=== PATIENT | female | born 1985 | race Caucasian/White ===

== ENCOUNTER 2021-03-07 17:11 | Emergency (ER) | payer OTHER ==
[~2021-03-07] VITALS: Ht 165.1 cm; Wt 59.1 kg
[2021-03-07] MEDS ORDERED: ONDANSETRON HCL 4 MG TABLET PO ONE (19:00)
[2021-03-07] MEDS ORDERED: ACETAMINOPHEN 500 MG TABLET PO ONE (19:00)
[2021-03-07 20:11] VITALS: BP 109/74
== END 2021-03-07 20:17 | disposition home or self-care (01) ==
LOC: EMS 17:14
DX: K52.9 Noninfective gastroenteritis and colitis, unspecified (principal)
CPT/HCPCS: 99283; Q0162

== ENCOUNTER 2021-06-27 09:36 | Emergency (ER) | payer OTHER ==
[~2021-06-27] VITALS: Ht 165.1 cm; Wt 61.0 kg
[2021-06-27] MEDS ORDERED: HYDROCODONE/ACETAMINOPHEN 5-325 MG TABLET PO ONE (10:15)
[2021-06-27 11:15] VITALS: BP 117/88
== END 2021-06-27 11:32 | disposition home or self-care (01) ==
LOC: EMS 09:36
DX: S93.401A Sprain of unspecified ligament of right ankle, initial encounter (principal); F17.210 Nicotine dependence, cigarettes, uncomplicated; X50.1XXA Overexertion from prolonged static or awkward postures, initial encounter; Y93.89 Activity, other specified; Y92.89 Other specified places as the place of occurrence of the external cause; Y99.8 Other external cause status
CPT/HCPCS: 99283